=== PATIENT | female | born 1990 | race Caucasian/White ===

== ENCOUNTER → 2022-12-10 | Outpatient (CLI) | payer OTHER ==
[~2022-12-10] MED LIST: LIDOCAINE 1% MDV 20ML VIAL As Ordered ONE
[2022-12-10 09:42] VITALS: TEMP 98.3
[2022-12-10 10:57] VITALS: BP 116/58; O2SAT 96
== END ==
LOC: M IRPRO 09:17
DX: R92.8 Other abnormal and inconclusive findings on diagnostic imaging of breast (principal); N63.22 Unspecified lump in the left breast, upper inner quadrant

== ENCOUNTER → 2022-12-10 | Outpatient (CLI) | payer OTHER | LOC: EDUNIT# 11:30 → M WHC 11:35 | DX: R92.8 Other abnormal and inconclusive findings on diagnostic imaging of breast (principal); R92.2 Inconclusive mammogram ==